=== PATIENT | male | born 1985 | race Caucasian/White ===

== ENCOUNTER 2018-06-09 10:59 | Outpatient (REF) | payer OTHER, SELFPAY ==
[2018-06-09 13:54] LABS: Abs Immature Grans 0.01 k/cumm (0.0-0.09); Absolute Basophil Count 0.01 k/cumm (0.0-0.2); Absolute Eosinophil Count 0.06 k/cumm (0.0-0.7); Absolute Lymphocyte Count 2.12 k/cumm (1.2-3.4); Absolute Monocyte Count 0.44 k/cumm (0.11-0.7); Absolute Neutrophil Count 1.93 k/cumm (1.2-6.7); Basophils % 0.2; Eosinophils % 1.3; HCT 43.3 % (40.0-50.0); HGB 14.9 g/dL (13.5-17.5); Immature Grans % 0.2; Lymphocytes % 46.4; Mean Corp. HGB Concentration 34.4 g/dL (32.0-36.0); Mean Corpuscular Hemoglobin 29.2 pg (27.0-33.0); Mean Corpuscular Volume 84.7 fL (80-95); Monocytes % 9.6; Neutrophils % 42.3; Platelet Count 318 x1000/uL (130-400); RBC 5.11 m/cumm (4.50-6.00); RBC Distribution Width 12.7 % (11.8-14.1); White Blood Cell Count 4.57 k/cumm (4.4-10.8)
[2018-06-09 14:17] LABS: ALT 27 U/L (12-78); AST 22 U/L (15-37); Albumin 4.1 g/dL (3.4-5.0); Alkaline Phosphatase 73 U/L (46-116); Anion Gap 7.6 mmol/L (3-11); BUN 18 mg/dL (7-18); Bilirubin, Total 0.4 mg/dL (0.2-1.0); CO2 27.4 mmol/L (21.0-32.0); CREATININE 1.05 mg/dL (0.70-1.30); Calcium 9.9 mg/dL (8.5-10.1); Chloride 104 mmol/L (98-107); Glucose 94 mg/dL (70-100); Potassium 4.4 mmol/L (3.5-5.1); Sodium 139 mmol/L (136-145); TSH (W/Ref FT4) 2.06 uIU/mL (0.358-3.74); Total Protein 7.5 g/dL (6.4-8.2)
== END 2018-06-09 11:19 ==
LOC: NCHCN 10:59
PROVIDERS: PCP Family Medicine; Visit Provider Family Medicine
DX: R53.83 Other fatigue (principal); J02.9 Acute pharyngitis, unspecified
CPT/HCPCS: 80053; 84443; 85025

== ENCOUNTER 2019-12-03 21:57 | Emergency (ER) | payer OTHER, SELFPAY ==
[2019-12-03 22:05] VITALS: BP 145/88; PULSE 95; RESP 16; TEMP 37.1; O2SAT 97
--- NOTE | 2019-12-03 22:15 | DI.CT_ITS ---
EXAM: CT ABDOMEN PELVIS W CLINICAL HISTORY: RLQ pain, r/o appe TECHNIQUE: Imaging Protocol: Axial computed tomography images with coronal and sagittal reformatted images were created and reviewed CONTRAST MATERIAL: Intravenous: Omnipaque 350 Contrast volume:100 mL Oral: No COMPARISON: No exams were available for comparison FINDINGS: ABDOMEN: Lung Bases: Normal where visualized. Liver: Normal density. No measurable mass. Portal, Superior Mesenteric, and Splenic Veins: Unremarkable. Gallbladder and Biliary Tract: No radiodense calculus or dilation. Pancreas: Normal density, no abnormal calcifications or inflammatory process. Spleen: Normal. Adrenals: No masses seen. Kidneys: Normal size, contour and axis. No radiodense stones or obstructive uropathy. No masses seen. Abdominal Aorta: Abdominal portion non-dilated. Bowel: There is a segment of bowel wall thickening involving the ascending colon. There are associat ed diverticula noted within the inflamed segment of bowel. Pericolonic inflammatory changes in this region are noted. Appendix is unremarkable. No evidence of obstruction. There is a small hiatal her mick. Peritoneal Cavity: Trace amount of ascites is seen in the pelvis. Lymph Nodes: Within normal limits. 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 No spondylolisthesis. Soft Tissues: Unremarkable. PELVIS: Bladder: Symmetric distention, no gross wall thickening. Reproductive Organs: Unremarkable as visualized. Lymph Nodes: Within normal limits. Bones: Please see above. IMPRESSION: 1. Short segment of colonic wall thickening, associated diverticula and pericolonic inflammatory [place] ge in the ascending colon. Findings likely reflect acute diverticulitis. No evidence of abscess or free air. Inflammatory or infectious colitis or malignancy could also produces appearance. Recommen d short-term imaging follow-up or follow-up colonoscopy to exclude features malignancy. 2. Small amount of reactive ascites in the pelvis. 3. Normal appendix is visualized. RADIATION DOSE DELIVERED: Total DLP DATA REPOSITORY: All CT scans at this facility are submitted to the National Radiology Data Registry (NRDR) Dose Index Registry (DIR) with the [employer] (A[employer]). RADIATION OPTIMIZATION: All CT scans at this facility use at least one of these dose optimization te chniques: automated exposure control; mA and/or kV adjustment per patient size (includes targeted exa ms where dose is matched to clinical indication); or iterative reconstruction.
--- NOTE | 2019-12-03 22:19 | W.ED.GENAD ---
Discharge Plan Disposition Patient Disposition: HOME Condition: Good Discharge Details Chief Complaint: Abd Prob Clinical Impression: Diverticulitis large intestine Primary Care Provider: Cassandra Solis ED Provider: Ronald Ann Home Meds and New Rx's Prescriptions: New amoxicillin-pot clavulanate [Augmentin] 875-125 mg tablet 1 tab PO BID 10 Days Qty: 20 RF: 0 Discharge Instructions Instructions: Diverticulitis (ED), Diverticulitis Diet (ED) Additional Instructions: At this time you have evidence of what is called diverticulitis. Please take the antibiotic as directed. Please drink plenty of fluids and avoid any greasy or fatty or meaty foods for the next week. Please take Tylenol and Motrin as needed for pain. Please follow-up closely with your primary care provider in the next week or so for reassessment. If your symptoms do not improve you may need to return for reassessment in the emergency department. Also of note there was some mild thickening in your colon as well, which is likely just from the diverticulitis, but you may eventually need a colonoscopy in the future for reassessment. If you notice any worsening of your symptoms, or any new symptoms such as vomiting, diarrhea, fever, chills, shortness of breath, chest pain, numbness, weakness, or fainting , please return immediately to the emergency department for reevaluation. Please follow up with your primary care provider as soon as possible for reassessment and reevaluation. As always, it was a pleasure participating in your medical care today. Stand Alone Forms: Work Release Referrals: Cassandra Solis MD [Primary Care Provider] - Medical Decision Making 34-year-old male with no significant past medical history presents today for evaluation of right lower quadrant abdominal pain. Pain is been present for the last 1 to 2 days. Started in the right lower quadrant, gradually worsening. Described as constant achy sensation. Worse with movement, bowel movements or eating. Mild nausea but no vomiting. No genital pain, testicular pain, urinary complaints or changes. No other modifying factors. No previous surgeries in the abdomen. Physical exam demonstrates mild to moderate pain at McBurney's point, positive Rovsing sign, no testicular abnormality, negative cremasteric reflex. Signs and symptoms are certainly concerning for acute appendicitis. We will gently rehydrate, give Toradol, get a CT scan, monitor closely and reassess. 11:[address] scan has returned, there is evidence of mild colonic wall thickening and a few colonic diverticula in the region suggestive of acute diverticulitis. She correlates well with his symptomatology. Symptoms at this time are inconsistent with a chronic malignant process. Patient's pain is well managed at this time, he is afebrile, vital signs stable. We will give a dose of Unasyn here and then Augmentin for home treatment. This time the patient continues to show no evidence of perforation or an acute surgical abdomen, and is appropriate for discharge. Recommend close follow-up with his primary care provider with eventual reassessment and potential colonoscopy on an outpatient basis. I have extensively reviewed the treatment plan and discharge instructions with the patient and their family. I have addressed all patient concerns at this time. The patient and family was made aware of what symptoms to monitor for that would warrant a return to the emergency department. Discussed the plan with the patient and family, they demonstrate verbal understanding and agreement with our assessment and plan at this time. IMPRESSION: 1. Moderate short segment colonic wall thickening in the ascending colon with a few colonic diverticula in this region. This most likely represents acute diverticulitis, with no evidence of perforation or abscess. Regional colitis or malignancy could also produce this appearance. Recommend short-term imaging follow-up or follow-up colonoscopy evaluation to demonstrate normalization and exclude features of malignancy. 2. Small amount of reactive ascites in the pelvis. 3. Normal appendix. Thank you for allowing us to participate in the care of your patient. Dictated and Authenticated by: Angel Ventura MD 12/03/2019 11:00 PM Eastern Time ([place] & [place]) HPI General Date/Time Provider Initiated Documentation: 12/03/19 22:11. HPI Narrative: 34-year-old male with no significant past medical history presents today for evaluation of right lower quadrant abdominal pain. Pain is been present for the last 1 to 2 days. Started in the right lower quadrant, gradually worsening. Described as constant achy sensation. Worse with movement, bowel movements or eating. Mild nausea but no vomiting. No genital pain, testicular pain, urinary complaints or changes. No other modifying factors. No previous surgeries in the abdomen. Related Data Home Medications Medication Instructions Recorded Confirmed amoxicillin-pot clavulanate 1 tab PO BID 10 Days #20 tab 12/03/19 [Augmentin] Previous Rx's Medication Instructions Recorded amoxicillin-pot clavulanate 1 tab PO BID 10 Days #20 tab 12/03/19 [Augmentin] General Stated Complaint: Abd Prob NATALIA: 3 Review of Systems All systems reviewed & are unremarkable except as noted in HPI and below PFSH Social History Smoking/Tobacco Use Status: Never Alcohol Intake: never Drug use: Never Do you feel safe at home: Yes Do you feel safe in your relationship?: Yes Exam Narrative Exam Narrative: 1.Const: Well-nourished, Well-developed, appearing stated age 2.Eyes: PERRL, no conjunctival injection, and symmetrical lids. 3.ENT: Atraumatic external nose and ears. Moist MM. Neck: Symmetric, trachea midline, No thyromegaly. 4.CVS: +S1/S2, No murmurs or gallops. Peripheral pulses 2+ and equal in all extremities. Brisk capillary refill in all extremities. 5.RESP: Unlabored respiratory effort. Clear to auscultation bilaterally. No wheezes rales or rhonchi 6.GI: Soft, nondistended, mild pain and tenderness in the right lower quadrant, and right mid abdominal quadrant. No testicular pain, normal cremasteric reflex bilaterally, no penile pain. Positive Rovsing sign, pain at McBurney's point is present. Negative Osei sign. Positive heel strike test, negative obturator and psoas sign. 7.MSK: Normocephalic/Atraumatic, Extremities w/o deformity or ttp No cyanosis or clubbing, Normal movement of all extremities 8.Skin: Warm, Dry. No rashes or lesions. 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 Sensation grossly intact, no focal neurologic deficits. 10.Psych: (AAO) x3. Appropriate mood and affect Course Vital Signs Vital signs: Vital Signs Temperature 37.1 C 12/03/19 22:05 Pulse 95 H 12/03/19 22:05 Respiratory Rate 16 12/03/19 22:05 Blood Pressure 145/88 H 12/03/19 22:05 Pulse Oximetry 97 12/03/19 22:05 Temperature 37.1 C 12/03/19 22:05 Temperature Source Temporal Artery Scan 12/03/19 22:05 Pulse 95 H 12/03/19 22:05 Respiratory Rate 16 12/03/19 22:05 Blood Pressure 145/88 H 12/03/19 22:05 Blood Pressure Position Sitting 12/03/19 22:05 Pulse Oximetry 97 12/03/19 22:05 Oxygen Delivery Method Room Air 12/03/19 22:05 Oxygen Flow Rate 0 12/03/19 22:05 Pain Level 6 12/03/19 22:05
[2019-12-03] MEDS: Ketorolac 15 MG/ML VIAL IVP (22:24)
[2019-12-03] MEDS: Normal Saline 1,000 ML 1000 ML IV (22:25)
[2019-12-03 22:30] LABS: Abs Immature Grans 0.03 k/cumm (0.0-0.09); HCT 41.6 % (40.0-50.0); HGB 14.6 g/dL (13.5-17.5); Mean Corp. HGB Concentration 35.1 g/dL (32.0-36.0); Mean Corpuscular Hemoglobin 29.7 pg (27.0-33.0); Mean Corpuscular Volume 84.6 fL (80-95); Mean Platelet Volume 9.8 fL (8.0-11.0); Platelet Count 324 x1000/uL (130-400); RBC 4.92 m/cumm (4.50-6.00); RBC Distribution Width 12.7 % (11.8-14.1); White Blood Cell Count 12.33 k/cumm (4.4-10.8)
[2019-12-03 22:32] LABS: Bilirubin Negative (Negative); Blood Moderate (Negative); Clarity Clear (Clear); Glucose Negative (Negative); Ketones Negative (Negative); Leukocyte Esterase Negative (Negative); Nitrite Negative (Negative); Urobilinogen 0.2 EU/dL (Up TO 0.2); pH 6.5 (5-8)
[2019-12-03 22:35] LABS: Bacteria Rare HPF (Negative); C & S Indicated? No; Casts Negative LPF (Negative); Crystals Negative HPF (Negative); Epithelial Cells Rare HPF (Negative); Mucus Negative (Negative); WBC Negative HPF (0-5)
[2019-12-03] MEDS: Normal Saline - Diluent 50 ML VIAL IV (22:37)
[2019-12-03] MEDS: Omnipaque 350 MG/ML 100 ML BTL IJ (22:38)
[2019-12-03] MEDS: Normal Saline Flush 10 ML SYR IVP (22:40)
[2019-12-03 22:45] LABS: ALT 21 U/L (16-63); AST 15 U/L (15-37); Albumin 4.2 g/dL (3.4-5.0); Alkaline Phosphatase 85 U/L (46-116); Anion Gap 10.3 mmol/L (3-11); BUN 18 mg/dL (7-18); Bilirubin, Total 0.5 mg/dL (0.2-1.0); CO2 27.7 mmol/L (21.0-32.0); CREATININE 1.04 mg/dL (0.70-1.30); Calcium 8.8 mg/dL (8.5-10.1); Chloride 102 mmol/L (98-107); Glucose 103 mg/dL (74-106); Lipase 81 U/L (73-393); Potassium 3.8 mmol/L (3.5-5.1); Sodium 140 mmol/L (136-145); Total Protein 7.7 g/dL (6.4-8.2)
[2019-12-03 22:46] LABS: Absolute Lymphocyte Count 1.48 k/cumm (1.2-3.4); Absolute Monocyte Count 1.97 k/cumm (0.11-0.7); Absolute Neutrophil Count 8.88 k/cumm (1.2-6.7); Atypical Lymphocytes % 2; Diff Comment Manual Differential
--- NOTE | 2019-12-03 23:00 | DI.VRAD_ITS ---
Addendum created by Angel Ventura MD on 12/03/2019 11:07:45 PM EDT Addendum: The ordering provider called to discuss whether there was any extraluminal air around the process in the ascending colon. The small focus of air density at the inferomedial margin of the involved segment is felt to represent an aerated diverticulum, and no suspected elements of extraluminal air are identified. Initial report created on 12/03/2019 11:00:40 PM EDT PROCEDURE INFORMATION: Exam: CT Abdomen And Pelvis With Contrast Exam date and time: 12/03/2019 10:18 PM Age: 34 years old Clinical indication: Other: Rlq pain, R/O appe TECHNIQUE: Imaging protocol: Computed tomography of the abdomen and pelvis with intravenous contrast. Contrast material: OMNIPAQUE 350; Contrast volume: 100 ml; Contrast route: INTRAVENOUS (IV); COMPARISON: No relevant prior studies available. FINDINGS: Lungs: Visualized lung bases are clear. Heart: Heart size normal. Mediastinal space: The visualized distal esophagus is normal. Liver: Normal size and contour. No mass lesions. No intrahepatic biliary ductal dilatation. Gallbladder and bile ducts: Normal. No calcified stones. No ductal dilation. Pancreas: Normal. No inflammatory changes or ductal dilation. Spleen: Normal. No splenomegaly. Adrenals: Normal. No adrenal mass. Kidneys and ureters: No acute abnormalities. No hydronephrosis or hydroureter. No urinary tract stones are identified. Stomach and bowel: The stomach is grossly normal. The small bowel is normal with no evidence of obstruction. There is moderate short segment wall thickening in the ascending colon involving a segment about 6 cm in length, with moderate surrounding inflammatory stranding , with several colonic diverticula present in the region. Disc likely represents acute diverticulitis, although regional colitis is another possibility. Malignancy is considered less likely but is not fully excluded, and either short-term imaging follow-up or follow-up colonoscopy Assessment is recommended to exclude malignancy. No evidence of perforation or abscess. Appendix: The appendix is normal in caliber and demonstrates no evidence of appendicitis. Intraperitoneal space: Small amount of reactive ascites in the pelvis. No free air. Vasculature: No acute process. No abdominal aortic aneurysm. Lymph nodes: No adenopathy. Bladder: Unremarkable as visualized. Reproductive: Unremarkable as visualized. Bones/joints: No acute osseous abnormalities. Soft tissues: Unremarkable. IMPRESSION: 1. Moderate short segment colonic wall thickening in the ascending colon with a few colonic diverticula in this region. This most likely represents acute diverticulitis, with no evidence of perforation or abscess. Regional colitis or malignancy could also produce this appearance. Recommend short-term imaging follow-up or follow-up colonoscopy evaluation to demonstrate normalization and exclude features of malignancy. 2. Small amount of reactive ascites in the pelvis. 3. Normal appendix. Dictated and Authenticated by: Angel Ventura MD. Ordering:CRISTOPHER Cardenas MD
[2019-12-03] MEDS: AMPICILLIN/SULBACTAM 3 GM in Normal Saline 100 ML IVPB (23:17)
[2019-12-03 23:33] VITALS: BP 118/70; PULSE 74; RESP 18; O2SAT 98
== END 2019-12-03 23:30 | disposition home or self-care (01) ==
PROVIDERS: Emergency Provider Student in an Organized Health Care Education/Training Program; PCP Family Medicine
DX: K57.32 Diverticulitis of large intestine without perforation or abscess without bleeding (principal); R11.0 Nausea
CPT/HCPCS: 36415; 80053; 83690; 96361; 96365; 96375; 99285; 74177; 81003; 81015; 85025; 99284; J0295; J1885; J3490

== ENCOUNTER 2020-02-08 07:26 | Day surgery (SDC) | payer OTHER, SELFPAY ==
[2020-02-08 07:41] VITALS: BP 129/94; PULSE 82; RESP 16; TEMP 36.4; O2SAT 99
[2020-02-08] MEDS: Lactated Ringers 1,000 ML 80 ML IV (08:11)
--- NOTE | 2020-02-08 08:48 | W.PM.HP.N ---
Date of service: 02/08/20 Time of Service: 08:48 Assessment and Plan Assessment and plan (1) Diverticulitis: Status: Chronic Assessment and plan: I advised colonoscopy. The procedure was described including the risks of perforation with need for surgery or bleeding. Patient agrees to proceed. History of Present Illness Narrative: Started with epigastric discomfort which migrated to right side. Developed chills and a fever. No nausea. Presented to the ER, had a CT which showed inflammation in the ascending colon. Feels better after taking the Augmentin for 10 days. Pain is resolved. Stool is slightly loose. Has increased yogurt and fiber. Notes prior issues with constipation. Off and on crampy discomfort and occasional mucus in stool for year. No blood in the stool. No prior colonoscopy. No FH colon cancer or IBD. Father has had diverticulitis. No weight loss. Works at [employer] All systems reviewed & are unremarkable except as noted in HPI and below PFSH Medical History Diverticulitis Surgical History Hx of wisdom tooth extraction Social History Smoking/Tobacco Use Status: Never Alcohol Intake: current Alcohol Intake frequency: holidays/special occasions only Drug use: Never Substance use type: does not use Do you feel safe at home: Yes Do you feel safe in your relationship?: Yes Meds Home Medications and Allergies Home Medications Medication Instructions Recorded Confirmed Type cholecalciferol (vitamin D3) 25 25 mcg PO DAILY 12/20/19 02/05/20 History mcg (1,000 unit) capsule multivitamin 1 cap PO DAILY 12/20/19 02/05/20 History Allergies Allergy/AdvReac Type Severity Reaction Status Date / Time No Known Allergies Allergy Verified 02/08/20 07:40 Exam Narrative Exam Narrative: Appears well Lungs CTA Heart RRR Abdomen soft, nontender Results Last Vital Signs Temp 97.5 F L 02/08/20 07:41 Pulse 82 02/08/20 07:41 Resp 16 02/08/20 07:41 BP 129/94 H 02/08/20 07:41 Pulse Ox 99 02/08/20 07:41 COVID-19 Screening Have you,or household,traveled outside [place] in last 14 days?: No Had IN PERSON contact w/suspected or confirmed C-19 person: No
--- NOTE | 2020-02-08 08:50 | W.PM.DSUDISC ---
Discharge Plan Disposition Patient Disposition: HOME Condition: Good Discharge Details Reason For Visit: Colonoscopy Attending Provider: Matilde Dunn Primary Care Provider: Cassandra Solis Home Meds and New Rx's Prescriptions: Continued multivitamin Capsule 1 cap PO DAILY RF: 0 cholecalciferol (vitamin D3) 25 mcg (1,000 unit) capsule 25 mcg PO DAILY RF: 0 Discharge Instructions Additional Instructions: Findings: Your colonoscopy showed scattered diverticulosis but no active inflammation. Follow up: Plan for routine screening colonoscopy at age 51. Continue a high fiber diet Please call if you develop: fevers >101.5 Nausea or Vomiting Abdominal pain that is not transient DAY SURGERY UNIT POST COLONOSCOPY INSTRUCTIONS 1. Because there will be medication in your system for the next 24 hours, you may feel a little sleepy. Your coordination will be affected. Therefore: a. Do not drive or operate dangerous equipment for 24 hours. b. Do not drink alcohol beverages for 24 hours (not even beer). c. Plan to go home and rest for the day. 2. Generally there are no restrictions on your activity after a day or so has gone by, but you may feel a bit fatigued for a few days. 3 After you arrive home you may have a light meal and return to a normal diet as you can tolerate it without feeling sick to your stomach. 4. After surgery, you may feel pain or discomfort. This should be only transient, but if it persists please contact your doctor. 5. If there are any questions regarding the findings of your procedure, please feel free to contact your doctor. 6. If you are unable to contact your doctor with a problem, contact the hospital at [phone]. 7. Continue all your regular medications unless directed otherwise. I understand the above instructions and have no questions. Signature of Patient or Responsible Adult Escort Date/Time Name of Responsible Adult Escort Signature of Nurse Date/Time Activity:: Activity as Tolerated Diet:: As Tolerated Discharge Orders Discharge Orders: Discharge Order (Routine); Ordered 02/08/20 Ordered By: Matilde Dunn DS: Diagnosis Discharge Diagnosis (1) Diverticulitis: Status: Chronic
--- NOTE | 2020-02-08 09:08 | W.COLOREPORT ---
Date of service: 02/08/20 Time of Service: 09:42 Colonoscopy Report Date of procedure: 02/08/20 Pre-op diagnosis general: Diverticulitis Post-op diagnosis procedure note: other (Diverticulosis) Procedure: Colonoscopy with biopsies Surgeon: Matilde Dunn Anesthesia proc note operative: MAC Indications: This 34 year old man was treated for his first episode of diverticulitis a few months ago. He presents for colonoscopy. No FH colon cancer. Procedure Description: The patient was placed in the left Hui position. Propofol was titrated to sedation. Digital rectal examination revealed no abnormalities. The scope was advanced to the cecum without difficulty. The ileocecal valve and appendiceal orifice were clearly identified. The prep was good. The distal ileum was intubated and appeared normal. Random biopsies were taken from the distal ileum and ascending colon. The scope was slowly withdrawn over the course of greater than 6 minutes. The ascending colon had several scattered diverticular pockets with no acute inflammation. No other abnormalities were seen in the transverse, descending, sigmoid colon or rectum including on retroflexed view. The patient tolerated the procedure well and was stable to recovery. Plan for routine screening colonoscopy at age 51 or sooner if symptoms indicate. Continue a high fiber diet.
--- NOTE | 2020-02-08 09:25 | BOWEL_PTH ---
PATIENT: Husam White LOC: [facility] U#:[id number] AGE/SX: 34/M ROOM: RE02/08/[address]: Matilde Dunn MD : 1985 BED: DIS: 02/08/2020 SPEC #: [id number] RECD: 02/08/20 12:24 STATUS: MILLIE REQ #: [id number] YAJAIRA: 02/08/20 09:[address]: Matilde Dunn DEPT: Surgical Specimen RECD BY: Rowena Adams ENTERED: 02/08/20 12:25 SP TYPE: Bowel OTHR DR: Cassandra Solis Tissues: 1 - BIOPSY BOWEL 2 - BIOPSY BOWEL Procedures: GROSS AND MICRO LEVEL 4 Comments: [id number]
[2020-02-08 09:53] VITALS: BP 110/72; PULSE 77; RESP 18; TEMP 36.2; O2SAT 100
== END 2020-02-08 10:20 | disposition home or self-care (01) ==
PROVIDERS: PCP Family Medicine; Visit Provider Surgery
PROC: 0DJD8ZZ Inspection of Lower Intestinal Tract, Via Natural or Artificial Opening Endoscopic (ICD-10-PCS; CPT 45378; principal; 2020-02-08 08:45)
DX: K57.30 Diverticulosis of large intestine without perforation or abscess without bleeding (principal)
CPT/HCPCS: 45380; 88305; NC; J2001

== ENCOUNTER 2020-05-06 21:09 | Outpatient (REF) | payer OTHER, SELFPAY ==
[2020-05-08 00:32] LABS: COVID-19 RT-PCR Result NEGATIVE (Negative)
== END 2020-05-06 21:29 ==
LOC: NCHCN 21:09
PROVIDERS: PCP Family Medicine; Visit Provider Physician Assistant
DX: Z20.828 Contact with and (suspected) exposure to other viral communicable diseases (principal)
CPT/HCPCS: U0003

== ENCOUNTER 2021-01-22 12:48 | Outpatient (REF) | payer OTHER, SELFPAY ==
[2021-01-23 15:29] LABS: COVID-19 RT-PCR UVMMC Result Negative (Negative)
== END 2021-01-22 12:49 | disposition home or self-care (01) ==
LOC: LBN 12:48
PROVIDERS: PCP Family Medicine; Visit Provider Physician Assistant Medical
DX: Z20.822 Contact with and (suspected) exposure to COVID-19 (principal); R50.9 Fever, unspecified
CPT/HCPCS: U0003

== ENCOUNTER 2021-09-09 12:30 | Emergency (ER) | payer OTHER, SELFPAY ==
[2021-09-09 12:33] VITALS: BP 157/98; PULSE 67; RESP 18; TEMP 36.9; O2SAT 100
--- NOTE | 2021-09-09 13:08 | ED.GENADUL_ITS ---
Discharge Plan Disposition Patient Disposition: HOME Condition: Improving Discharge Details Clinical Impression: Laceration of finger Primary Care Provider: Cassandra Solis ED Provider: Shilo Eddy Home Meds and New Rx's Prescriptions: Continued multivitamin Capsule 1 cap PO DAILY 0RF cholecalciferol (vitamin D3) 25 mcg (1,000 unit) capsule 25 mcg PO DAILY 0RF Discharge Instructions Instructions: Finger Laceration (ED) Additional Instructions: Tetanus status updated. Laceration was cleaned and approximated without difficulty. Dermabond will come off on its own in approximately 7 days. Wear splint and change dry sterile dressing until that time. Please watch for new or worsening symptoms and return to the ER for any concerns Medical Decision Making This is a 36-year-old gentleman, [id number], presents for a right fifth finger laceration he sustained at work prior to arrival. Denies any other injury, numbness, tingling, weakness, active bleeding. Pain is mild in nature. No suspicion for foreign body. At this time no clear indication for x-ray as extremely low suspicion for foreign body and/or bony abnormality. Neuro, vascular, tendon intact. Will update tetanus as his last tetanus was 2010. Laceration was thoroughly cleaned. We discussed approximation options. Using shared decision making, options for Dermabond and splint was chosen, I feel this is perfectly appropriate. Laceration approximated without difficulty. Standard discharge and return precautions were provided. Standard discharge and return precautions were provided. Patient understands, is agreeable to this plan, and has no additional questions or concerns upon discharge. This documentation was generated using [employer] dictation system, please disregard any oddities of phrase or misspellings. Medical Records Medical records reviewed: Yes I reviewed the patient's medical records. HPI General Mode of arrival: ambulatory . Date/Time Provider Initiated Documentation: 09/09/21 12:30 . Limitations to Documentation: no limitations . Information obtained by: patient . History of Present Illness 36 year old M presents to the emergency department with the chief complaint of R 5th finger lac, described as mild, with intensity rated at 2. Quality is described as aching, and is localized to the right and upper extremity. Patient reports no radiation. Patient started experiencing this minute(s) (45) and it has been constant. improves with Immobilization improves symptom(s), Movement worsens symptoms . Patient notes no other symptoms.. Patient did receive the following treatments prior to arrival, none Related Data Home Medications Medication Instructions Recorded Confirmed cholecalciferol (vitamin D3) 25 25 mcg PO DAILY 12/20/19 09/09/21 mcg (1,000 unit) capsule multivitamin 1 cap PO DAILY 12/20/19 09/09/21 Allergies Allergy/AdvReac Type Severity Reaction Status Date / Time No Known Allergies Allergy Verified 09/09/21 12:38 General Stated Complaint: Laceration NATALIA: 5 Review of Systems Constitutional Constitutional: Denies weakness Musculoskeletal Musculoskeletal: Denies deformity, Denies numbness, Denies stiffness and Denies tingling Integumentary/Breasts Skin/Breast: Denies erythema Neurologic Neurologic: Denies numbness, Denies tingling and Denies weakness PFSH All Active Problems (Updated 09/09/21 @ 13:31 by REBEKAH Rizvi) Laceration of finger (Acute) Diverticulitis (Chronic) Surgical History Hx of wisdom tooth extraction Social History Smoking/Tobacco Use Status: Never Smoking risk assessment performed?: Yes Alcohol Intake: current Alcohol Intake frequency: holidays/special occasions o nly Drug use: Never Substance use type: does not use Do you feel safe at home: Yes Do you feel safe in your relationship?: Yes Exam Const General: cooperative, healthy appearing, comfortable and no acute distress Orientation: alert and awake [facility] Head: normal to inspection, normocephalic and atraumatic Eyes Conjunctivae: conjunctivae normal Neck Neck: normal visual inspection, trachea midline and supple Resp Effort & Inspection: normal respiratory effort and able to speak in complete sentences Cardio Rate: regular rate Rhythm: regular rhythm Skin General skin exam: no rashes or lesions noted Neuro General: patient alert, patient awake, moves all extremities and no focal motor deficits Cognition: normal cognition Speech: speech normal Gait: normal gait Sensory Exam: no sensory deficits noted Extrem General: full ROM and capillary refill normal Hand/finger images: 1. 2.5 cm well approximated laceration, no active bleeding. No obvious foreign body. Full range of motion. 5/5 strength. Neuro, vascular, tendon intact. Normal capillary refill. Psych Appearance: grossly normal Mental Status: mental status grossly normal Course Vital Signs Vital signs: Vital Signs Temperature 36.9 C 09/09/21 12:33 Pulse 67 09/09/21 12:33 Respiratory Rate 18 09/09/21 12:33 Blood Pressure 157/98 H 09/09/21 12:33 Pulse Oximetry 100 09/09/21 12:33 Temperature 36.9 C 09/09/21 12:33 Temperature Source Tympanic 09/09/21 12:33 Pulse 67 09/09/21 12:33 Respiratory Rate 18 09/09/21 12:33 Respiratory Effort 09/09/21 12:36 Blood Pressure 157/98 H 09/09/21 12:33 Blood Pressure Position Sitting 09/09/21 12:33 Pulse Oximetry 100 09/09/21 12:33 Oxygen Delivery Method Room Air 09/09/21 12:33 Oxygen Flow Rate 0 09/09/21 12:33 Pain Level 2 09/09/21 12:33 Procedures Other Description: Laceration of the right fifth finger, 2.5 cm, thoroughly cleaned. Approximated with Dermabond. Dry sterile dressing and finger splint applied. patient tolerated well.
== END 2021-09-09 13:43 | disposition home or self-care (01) ==
LOC: ER 13:53
PROVIDERS: Emergency Provider Physician Assistant; PCP Family Medicine
DX: S61.216A Laceration without foreign body of right little finger without damage to nail, initial encounter (principal); W26.8XXA Contact with other sharp object(s), not elsewhere classified, initial encounter; Y99.0 Civilian activity done for income or pay
CPT/HCPCS: 12001; 90471

== ENCOUNTER 2022-06-18 16:39 | Outpatient (REF) | payer OTHER, SELFPAY ==
[2022-06-18 19:49] LABS: Hemoglobin A1C 4.9 % (<5.7)
[2022-06-18 20:00] LABS: BUN 21 mg/dL (7-18); CREATININE 1.1 mg/dL (0.70-1.30); Calcium 9.5 mg/dL (8.5-10.1); Chloride 104 mmol/L (98-107); Estimated GFR 89.78 (mL/min/1.73m2); Glucose 87 mg/dL (74-106); Potassium 4.3 mmol/L (3.5-5.1); Sodium 140 mmol/L (136-145); TSH (W/Ref FT4) 2.89 uIU/mL (0.36-3.74)
== END 2022-06-18 16:40 | disposition home or self-care (01) ==
LOC: NCHCN 16:39
PROVIDERS: PCP Family Medicine; Visit Provider Family Medicine
DX: I10 Essential (primary) hypertension (principal); E66.9 Obesity, unspecified; Z82.49 Family history of ischemic heart disease and other diseases of the circulatory system; Z00.00 Encounter for general adult medical examination without abnormal findings
CPT/HCPCS: 80048; 83036; 84443

== ENCOUNTER 2022-07-15 01:57 | Outpatient (CLI) | payer OTHER, SELFPAY ==
--- NOTE | 2022-07-15 | DI.CT_ITS ---
Exam(s) CT BRAIN CTA EXAM: CT BRAIN CTA CLINICAL HISTORY: FAMILY H/O CEREBRAL ANEURSYM,Z82.49. TECHNIQUE: Imaging Protocol: Axial CT angiography was performed with multi-slice acquisition and mu lti-planar and/or 3D reconstructions. CONTRAST MATERIAL: Intravenous: Omnipaque 350 contrast volume:85 mL COMPARISON: CT CT ABDOMEN PELVIS W from 12/03/2019 FINDINGS: CT Head W/O: Ventricles and Extra axial spaces: Normal in size and morphology for the patient's age. Hemorrhage: None. Cerebral parenchyma: Normal. Midline shift: None. Brainstem/Cerebellum: Normal. Calvarium: Normal. Visualized Paranasal sinuses/Mastoids: Clear. Soft Tissues: Unremarkable. Enhancement: Unremarkable. CTA Brain W: Internal Carotid Arteries: Petrous: Normal. Cavernous: Normal. Cerebral: Normal. Anterior Cerebral Arteries: Right: No aneurysm, occlusion or significant stenosis. Left: No aneurysm, occlusion or significant stenosis. Middle Cerebral Arteries: Right: No aneurysm, occlusion or significant stenosis. Left: No aneurysm, occlusion or significant stenosis. Posterior cerebral Arteries: Right: No aneurysm, occlusion or significant stenosis. Left: No aneurysm, occlusion or significant stenosis. Vertebral Arteries: Right: No aneurysm, occlusion or significant stenosis. Left: No aneurysm, occlusion or significant stenosis. Basilar Artery: No aneurysm, occlusion or significant stenosis. IMPRESSION: 1. Normal CTA examination of the [place] of [place]. 2. Unremarkable CT head. RADIATION DOSE DELIVERED: 1,856.08mGy.cm Total DLP DATA REPOSITORY: All CT scans at this facility are submitted to the National Radiology Data Registry (NRDR) Dose Index Registry (DIR) with the [employer] (ACR). RADIATION OPTIMIZATION: All CT scans at this facility use at least one of these dose optimization te chniques: automated exposure control; mA and/or kV adjustment per patient size (includes targeted exa ms where dose is matched to clinical indication); or iterative reconstruction.
[2022-07-15] MEDS: Omnipaque 350 MG/ML 500 ML BTL-Imaging package IJ (14:14)
[2022-07-15] MEDS: Normal Saline - Diluent 50 ML VIAL IJ (14:14)
[2022-07-15] MEDS: Normal Saline Flush 10 ML SYR IVP (14:15)
== END 2022-07-15 02:17 ==
LOC: DI 01:58
PROVIDERS: PCP Family Medicine; Visit Provider Family Medicine
DX: Z82.49 Family history of ischemic heart disease and other diseases of the circulatory system (principal); Z13.89 Encounter for screening for other disorder
CPT/HCPCS: 70496

== ENCOUNTER 2023-06-22 18:13 | Outpatient (REF) | payer OTHER, SELFPAY ==
[2023-06-22 19:56] LABS: Hemoglobin A1C 5.1 % (<5.7)
[2023-06-23 18:56] LABS: Hepatitis C Ab w Rflx HCV PCR Negative (Negative)
[2023-06-23 18:59] LABS: HIV-1/2 Ag & Ab Screen Negative (Negative)
== END 2023-06-22 18:14 | disposition home or self-care (01) ==
LOC: NCHCN 18:13
PROVIDERS: PCP Family Medicine; Visit Provider Family Medicine
DX: Z00.00 Encounter for general adult medical examination without abnormal findings (principal); Z13.1 Encounter for screening for diabetes mellitus
CPT/HCPCS: 86803; 87389; 83036

== ENCOUNTER 2024-10-11 19:19 | Emergency (ER) | payer OTHER, SELFPAY ==
[2024-10-11 19:24] VITALS: BP 153/97; PULSE 73; RESP 20; TEMP 36.8; O2SAT 97
--- NOTE | 2024-10-11 20:11 | ED.GENADUL_ITS ---
Discharge Plan Disposition Patient Disposition: Home Condition: Stable Discharge Details Clinical Impression: Laceration of left thumb Primary Care Provider: Cassandra Solis ED Provider: Ronald Sanchez Home Meds and New Rx's Prescriptions: No Action sertraline 50 mg tablet 50 mg PO DAILY Patient Comments: TAKE ONE TABLET BY MOUTH EVERY DAY Discharge Instructions Instructions: Laceration Repair With Glue ED Additional Instructions: You were seen in the emergency department for the small laceration to your left thumb fingertip, this was repaired by skin glue that should fall off in about a week, please use the splint provided to keep your thumb immobilized to allow the wound to adhere to itself for 48 to 72 hours, take Tylenol and ibuprofen for pain, return to emergency department for any signs of infection like redness, drainage of pus from the area, red streaking up the arm, or fever. Referrals: Cassandra Solis MD [Primary Care Provider] - [facility] General Date/Time Provider Initiated Documentation: 10/11/24 19:29 . HPI Narrative: 39 year-old male presents to ED today by POV/ambulating with his with a chief complaint of L thumb laceration while cooking in the kitchen on a sharp knife with onset just prior to arrival. Quality described as small laceration to tip of thumb just lateral to nail fold, no radiation to active bleeding, numbness, fingertip avulsion. Severity is described as mild. Palliating factors include direct pressure with relief of bleeding. Provoking factors include nothing specific. Events leading up to the incident/Associated Symptoms: Patients Tdap is UTD. Patient not anticoagulated. Related Data Home Medications ?Medication ?Instructions ?Recorded ?Confirmed sertraline 50 mg tablet 50 mg PO DAILY 10/11/24 10/11/24 Allergies Allergy/AdvReac Type Severity Reaction Status Date / Time No Known Allergies Allergy Verified 10/11/24 19:27 General Stated Complaint: Laceration NATALIA: 4 Review of Systems All systems reviewed & are unremarkable except as noted in HPI and below Exam Narrative Exam Narrative: GENERAL APPEARANCE: Well-nourished, non-toxic, awake and alert, atraumatic, no acute distress. SKIN: Warm, pink, dry, 0.5 cm horizontal linear laceration superficial to the left distal thumb just lateral to the nail fold, no active bleeding, range of motion intact, sensation intact. HEAD: Normocephalic, atraumatic, normal hair distribution for gender/age. EYES: Normal conjunctiva, no exudates on lids/lashes. ENT: Nares patent, no circumoral cyanosis, no facial swelling NECK: Supple, trachea midline, painless cervical ROM. LUNGS/CHEST: Non-labored respirations, normal A/P diameter, symmetrical expansion, no chest wall deformity HEART (CV/PV): No peripheral edema, no JVD. ABDOMEN: Soft, non-distended, no guarding. MSK: Normal ROM, no swelling/deformity to bilateral UEs or LEs, moving all extremities without weakness, no cyanosis, spine midline without tenderness, normal curvature. NEURO: Mental Status AAOx4 - alert to person, place, time, events No facial droop, no forehead involvement. Motor: No focal weakness - strength 5/5 in bilateral UEs and LEs, proximal and distal, symmetric. Sensory: sensation intact to light touch globally. Gait normal: patient ambulated without ataxia into ED room. PSYCH: euthymic, cooperative, pleasant, appropriate speech Course Vital Signs Vital signs: Vital Signs Temperature 36.8 C 10/11/24 19:24 Pulse 73 10/11/24 19:24 Respiratory Rate 20 10/11/24 19:24 Blood Pressure 153/97 H 10/11/24 19:24 Pulse Oximetry 97 10/11/24 19:24 Temperature 36.8 C 10/11/24 19:24 Pulse 73 10/11/24 19:24 Respiratory Rate 20 10/11/24 19:24 Blood Pressure 153/97 H 10/11/24 19:24 Blood Pressure Position Sitting 10/11/24 19:24 Pulse Oximetry 97 10/11/24 19:24 Oxygen Delivery Method Room Air 10/11/24 19:24 Oxygen Flow Rate 0 10/11/24 19:24 Procedure Laceration Laceration 1: Date of Procedure: 10/11/24 Time of procedure: 20:39 Provider that performed the procedure: Ronald Sanchez Standard Time Out Performed: No Patient Consented: Verbally Site: hand Side (If applicable): left Description: linear and clean Depth: simple, single layer Pre-repair:: wound explored, irrigated extensively and deep structures intact Skin layer closed with: other (SkinAffix glue in multiple layers) Complications: None Medical Decision Making This dictation utilizes [id number] dictation software and may contain unedited grammatical errors. 39 year-old male presents to ED today by POV/ambulating with his with a chief complaint of L thumb laceration while cooking in the kitchen on a sharp knife with onset just prior to arrival. Quality described as small laceration to tip of thumb just lateral to nail fold, no radiation to active bleeding, numbness, fingertip avulsion. Severity is described as mild. Palliating factors include direct pressure with relief of bleeding. Provoking factors include nothing specific. Events leading up to the incident/Associated Symptoms: Patients Tdap is UTD. Patients' medical history: Noncontributory. Family and social history: Noncontributory. Pertinent exam findings / vital signs include 0.5 cm horizontal linear laceration superficial to the left distal thumb just lateral to the nail fold, no active bleeding, range of motion intact, sensation intact. Differential / pathologies of concern include laceration. Diagnostic studies of: - None. Interventions of: - Repaired with skin affix. ED Course/Assessment/Plan: 39-year-old male cut his thumb while cooking at home, the wound is clean his hands were cleaned prior to the wound happening he was cutting food, direct pressure relieved bleeding, I cleaned the area with ChloraPrep and repaired the wound with skin affix glue in multiple layers, directed to use a thumb splint for 48 to 72 hours to let the wound adhered to itself to prevent rebleeding, stressed strict return criteria for any signs of infection. Findings not consistent with tendon lack, grossly contaminated wound, nailbed injury. Disposition of laceration of left thumb. Patient verbalized understanding of the plan and return to ED criteria and engaged in shared decision making. Medical Records Medical records reviewed: Yes I reviewed the patient's medical records. Quality:SDOH Health Related Social Needs: No Data to Display PFSH All Active Problems (Updated 10/11/24 @ 20:41 by REBEKAH Valdez) Laceration of left thumb (Acute) Diverticulitis (Chronic) Surgical History Hx of wisdom tooth extraction Social History Smoking/Tobacco Use Status: Never Smoking risk assessment performed?: Yes Alcohol Intake: current Alcohol Intake frequency: holidays/special occasions only Drug use: Never Substance use type: does not use Do you feel safe at home: Yes Do you feel safe in your relationship?: Yes PAWSS Have you Been Recently Intoxicated or Drunk Within the Last 30 days?: No Have you Ever Experienced Previous Episodes of Alcohol Withdrawal?: No Have you ever Experienced Withdrawal Seizures?: No Have you ever Experienced Delirium Tremens(DT)s?: No Have you ever undergone Alcohol Rehabilitation Treatment (i.e, inpt ot outpatient treatment programs)?: No Have you ever Experienced Blackouts?: No Have you ever Combined Alcohol with other Downers within the last 90 days?: No Have you ever Combined Alcohol with any other Substance of Abuse during the last 90 days?: No Positive Blood Alcohol level on Presentation? [PCS.BAL]: No Evidence of Increased Autonomic Activity (i.e. HR>120, tremor, sweating, agitation, nausea)?: No Result: 0
== END 2024-10-11 20:53 | disposition home or self-care (01) ==
LOC: ER 21:12
PROVIDERS: Emergency Provider Physician Assistant; PCP Family Medicine
DX: S61.012A Laceration without foreign body of left thumb without damage to nail, initial encounter (principal); W26.0XXA Contact with knife, initial encounter; Y93.G3 Activity, cooking and baking; Y92.010 Kitchen of single-family (private) house as the place of occurrence of the external cause
CPT/HCPCS: 12001; 99283